=== PATIENT | female | born 1950 | race Two or more races ===

== ENCOUNTER 2022-04-05 13:57 | Emergency (ER) | payer OTHER ==
[~2022-04-05] VITALS: Ht 160 cm; Wt 63.5 kg
[2022-04-05] MEDS ORDERED: PEPCID AC20 MG PO (17:35)
== END 2022-04-05 19:50 | disposition home or self-care (01) ==
LOC: ER 13:57
DX: K29.70 Gastritis, unspecified, without bleeding (principal); I10 Essential (primary) hypertension

== ENCOUNTER 2022-04-13 08:47 | Outpatient (CLI) | payer OTHER ==
[~2022-04-13 08:47] MED LIST: PEPCID AC20 MG PO
== END 2022-04-13 08:54 | disposition home or self-care (01) ==
LOC: SONOGRAMA 08:47
PROVIDERS: ATTEND Family Medicine
DX: R10.10 Upper abdominal pain, unspecified (principal)

== ENCOUNTER → 2022-09-15 | Outpatient (CLI) | payer OTHER | END | disposition home or self-care (01) | LOC: RAD 14:49 | PROVIDERS: ATTEND Family Medicine | DX: R05.8 Other specified cough (principal) ==

== ENCOUNTER → 2022-10-17 | Emergency (ER) | payer OTHER ==
[~2022-10-17] VITALS: Ht 160 cm; Wt 72.6 kg
[~2022-10-17] MED LIST changes: +ATENOLOL50 MG PO; +DIOVAN320 MG PO; +LEVOTHYROXINE25 MCG PO
== END | disposition left against medical advice (07) ==
LOC: ER 11:35
DX: I10 Essential (primary) hypertension (principal); F41.9 Anxiety disorder, unspecified

== ENCOUNTER 2023-03-21 12:03 | Outpatient (CLI) | payer OTHER | END 2023-03-21 12:08 | disposition home or self-care (01) | LOC: SONOGRAMA 12:03 | PROVIDERS: ATTEND Surgery | DX: N60.11 Diffuse cystic mastopathy of right breast (principal); N60.12 Diffuse cystic mastopathy of left breast ==

== ENCOUNTER 2023-07-31 16:04 | Emergency (ER) | payer OTHER ==
[~2023-07-31] VITALS: Ht 167.6 cm; Wt 71.2 kg
== END 2023-07-31 18:25 | disposition home or self-care (01) ==
LOC: ER 16:04
DX: H10.30 Unspecified acute conjunctivitis, unspecified eye (principal); Z88.2 Allergy status to sulfonamides; Z88.5 Allergy status to narcotic agent